=== PATIENT | female | born 1970 | race Caucasian/White ===

== ENCOUNTER 2017-07-10 08:40 | Emergency (ER) | payer OTHER ==
[~2017-07-10] VITALS: Ht 167.6 cm; Wt 65.0 kg
[2017-07-10 08:45] VITALS: BP 130/63; PULSE 52; RESP 18; O2SAT 100
--- NOTE | 2017-07-10 09:06 | ED.REPORT ---
HPI-Abd Pain F 40 and Over Date of Service Jul 10, 2017 ED Provider: Kel Stout MD Pt is a 46 year old female with a history of appendectomy and oophorectomy who presents to the ED complaining of LLQ abdominal pain onset yesterday night. She c/o associated nausea, vomiting, and insomnia secondary to the pain. Pt reports that she vomited prior to arrival. She denies chills, constipation, hematuria, hematemesis, fever, and diarrhea. She reports that she pain radiates to her low back. The pt took ibuprofen without relief. The pt has experienced similar symptoms previously. Pt denies a history of bowel disease and cholecystectomy. Nursing Notes Stated Complaint: POSSIBLE OVARIAN CYSTS/VOMITING Chief Complaint: Female Abdominal Pain Nursing Notes Reviewed: Yes Allergies: Coded Allergies: No Known Allergies (Verified , 07/10/17) General Time Seen by MD: 09:05 Chief Complaint Abdominal pain Hx Obtained From: Patient Arrived By: Walk-in Sudden in Onset?: No Onset Occurred: Yesterday Symptom Duration: Since onset Location: : LLQ Quality: Painful Radiation: : Does not radiate Severity: Current: Moderate Severity: Maximum: Moderate Recent Healthcare: No recent doctor visit, No recent hospitalization Similar Sx Previous: Yes Past Medical History Past Medical History Denies hx of bowel disease, heart disease, and lung disease Denies: Asthma, Diabetes mellitus, Hypertension Past Surgical History Right knee repair x3 Reports: Appendectomy, , Denies: Cholecystectomy Smoking History Unknown if Ever Smoker Social History Alcohol Use: Denies alcohol use Drug Use: Denies drug use Other Social History: Good social support 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 Psychiatric: Reports: Insomnia Physical Exam Vital Signs Vital Signs (First) Date Time Temp Pulse Resp B/P Pulse Ox O2 Delivery O2 Flow Rate FiO2 07/10/17 08:45 36.7 52 18 130/63 100 Room Air Initial VS: Reviewed Head / Eyes: Atraumatic, Normocephalic Neck: Supple, Full range of motion Extremities: Vascular intact, Neuro intact Skin: Warm, Dry, No cyanosis Neurologic: Alert, Oriented, Nonfocal Psychiatric: Mood/affect normal, Behavior normal General/Constitutional: Awake, Alert Respiratory / Chest: Atraumatic, Breath sounds NL, Breath sounds = bilat Cardiovascular: Heart rate NL, Regular rhythm, Heart sounds NL Abdomen: No guarding Midline suprapubic and LLQ tenderness with mild rebound. Back: Atraumatic, Full range of motion Interpretation & Diagnostics PELVIS US: line technician reports small hemorrhagic cyst on the left with a moderate amount of free fluid in the abdomen. Normal color Doppler flow to the left ovary. Right ovary absent. Lab Results Interpretation Result Diagram: 07/10/17 0945 07/10/17 0945 Test 07/10/17 09:45 07/10/17 09:47 White Blood Count 10.2th/mm3 (3.8-10.1) Red Blood Count 3.93mil/mm3 (3.90-5.20) Hemoglobin 12.4g/dL (12.0-15.6) Hematocrit 37.2% (35.0-46.0) Mean Corpuscular Volume 94.7fL (81-100) Mean Corpuscular Hemoglobin 31.6pg (27.0-35.0) Mean Corpuscular Hemoglobin Concent 33.3% (32.0-37.0) Red Cell Distribution Width 11.2% (12.3-15.4) Platelet Count 228bil/L (150-400) Neutrophils (%) (Auto) 82.1% (40-74) Lymphocytes (%) (Auto) 11.6% (14-46) Monocytes (%) (Auto) 5.6% (4-12) Eosinophils (%) (Auto) 0.4% (0-5) Basophils (%) (Auto) 0.2% (0-3) Sodium Level 136mEq/L (134-144) Potassium Level 4.0mEq/L (3.5-5.2) Chloride Level 100mEq/L (97-108) Carbon Dioxide Level 23mmol/L (18-29) Blood Urea Nitrogen 13mg/dL (6-24) Creatinine 0.65mg/dL (0.57-1.00) Estimat Glomerular Filtration Rate 139mL/min (>59) Glucose Level 95mg/dL (60-99) Calcium Level 8.8mg/dL (8.5-10.1) Total Bilirubin 0.4mg/dL (0.0-1.2) Aspartate Amino Transf (AST/SGOT) 27U/L (0-50) Alanine Aminotransferase (ALT/SGPT) 26U/L (0-32) Alkaline Phosphatase 54U/L (25-150) Total Protein 6.6g/dL (6.4-8.4) Albumin 3.8g/dL (3.4-5.0) Urine Color Yellow (YELLOW) Urine Appearance Hazy (CLEAR,HAZY) Urine pH 6.0 (5.0-8.0) Urine Specific [place] 1.030 (1.003-1.035) Urine Protein 30mg/dL (NEG,TRACE) Urine Glucose (UA) Negativemg/dL (NEGATIVE) Urine Ketones 15mg/dL (NEGATIVE) Urine Occult Blood Negative (NEGATIVE) Urine Nitrite Negative (NEGATIVE) Urine Bilirubin Negative (NEGATIVE) Urine Urobilinogen Normalmg/dL (NORMAL) Urine Leukocyte Esterase Negative (NEGATIVE) Urine RBC 0-2/hpf (0-2) Urine WBC 0-5/hpf (0-5) Urine Epithelial Cells Occasional/hpf (NONE-MOD) Urine Crystals None seen (NONE SEEN) Urine Bacteria Moderate/hpf (NONE-FEW) Urine Hyaline Casts None/lpf (NONE) Urine Granular Casts None seen (NONE SEEN) Urine Waxy Casts None seen (NONE SEEN) Urine Red Blood Cell Casts None seen (NONE SEEN) Urine White Blood Cell Casts None seen (NONE SEEN) Urine Mucus Present (None Seen) Urine Trichomonas None seen (NONE SEEN) Urine Yeast Few (NONE SEEN) Urinalysis Comment None Urine Culture Reflexed Indicated Re-Eval/Medical Decision Source of Hx: Old records Re-Evaluation/Progress #1: Time of Eval: 10:59 Re-Evaluation/Progress Note: Pt rechecked. US was being done. All questions addressed. Re-Evaluation/Progress #2: Time of Eval: 11:42 Re-Evaluation/Progress Note: Pt rechecked. She is feeling better and doesn't want any pain medication. Informed pt of plan for discharge. Pt understands and agrees with plan for discharge. F/U instructions and RTER warnings given. All questions addressed. Counseled Regarding: Diagnosis, Lab results, Need for follow-up, When/why to return to ED Discharge & Departure Primary Impression: Left ovarian cyst Disposition: Home Discharge Condition All VS Reviewed: Yes Condition: Stable Patient Instructions: Ovarian Cyst (ED) Additional Instructions: I believe that the symptoms you are experiencing are the result of a hemorrhagic ovarian cyst. Usually this will resolve itself after some time. To help manage the symptoms I recommend ibuprofen 800 mg every 8 hours and acetaminophen (Tylenol) 1000 mg every 6 hours. These are maximum doses. I recommend immediate follow-up for fainting or worsening abdominal pain or high fever. Otherwise follow-up with your primary care provider in the next week or 2 as needed. Referrals: Russ De MD (PCP) Scribe Attestation Portions of this note were transcribed by Mayuri Gao. I, Dr. Stout personally performed the history, physical exam and medical decision-making; I reviewed and confirmed the accuracy of the information in the transcribed note. Signed by: James Alfred, 07/10/17. copies to: Russ De MD, Kirk H MD Jul 10, 2017 09:06 Mayuri Jernigan Jul 10, 2017 09:16
[2017-07-10] MEDS ORDERED: 0.9% Sodium Chloride 1,000 ML IV ONE (09:19)
[2017-07-10] MEDS ORDERED: Ondansetron 2 mg/mL 2 mL Inj IVPUSH PRN (09:20)
[2017-07-10] MEDS ORDERED: HYDROmorphone 0.5 mg/0.5 mL iSecure Syringe IVPUSH PRN (09:20)
[2017-07-10 09:53] LABS: BASOPHILS % (AUTO) 0.2 % (0-3); EOSINOPHILS % (AUTO) 0.4 % (0-5); MONOCYTES % (AUTO) 5.6 % (4-12); Mean Corpuscular Hemoglobin 31.6 pg (27.0-35.0); Mean Corpuscular Volume 94.7 fL (81-100); NEUTROPHILS % (AUTO) 82.1 % (40-74); Platelet Count 228 bil/L (150-400)
[2017-07-10 10:30] LABS: APPEARANCE,URINE HAZY (CLEAR,HAZY); COLOR,URINE YELLOW (YELLOW); OCCULT BLOOD,URINE NEGATIVE (NEGATIVE)
[2017-07-10 10:35] LABS: UROBILINOGEN,URINE NORMAL (NORMAL)
[2017-07-10 10:36] LABS: YEAST,URINE FEW (NONE SEEN)
[2017-07-10 11:25] VITALS: BP 104/68; PULSE 58; RESP 12; O2SAT 100
--- NOTE | 2017-07-10 11:52 | DRSVH ---
PROCEDURE: US PELVIC SONOGRAM + TRANSVAGINAL SONOGRAM INDICATIONS: pelvic pain TECHNIQUE: Real-time scanning was performed of the pelvic organs, with image documentation. Additional endovagi nal scanning was necessary due to incomplete visualization of the adnexal and endometrial structures by transabdominal scanning. COMPARISON: None. FINDINGS: (orthogonal measurements) Uterus size: Status post hysterectomy Endometrium thickness: Size post hysterectomy Right ovary size: Status post right oophorectomy Left ovary size: 4.53 cm, 3.12 cm, 3.60 cm Transabdominal scanning: Limited scanning through the kidneys shows no hydronephrosis. No pathologi c free abdominal or pelvic fluid. Endovaginal scanning: Uterus: Surgically absent Ovaries: There multiple complex appearing cystic lesions involving the left ovary measuring 3.1 x 3.4 x 3.2 cm and 1.7 x 1.3 x 1.5 cm. No internal vascularity is seen. There are internal echoes. There i s normal venous and arterial waveforms with Doppler interrogation. IMPRESSION: Multiple solid versus complex cystic lesions involving the left ovary as measured above statistically representing hemorrhagic cysts although nonspecific. Recommend followup with pelvic ultrasound in 6 weeks to document resolution. No evidence of left ovarian torsion. Status post right oophorectomy and hysterectomy. Dictated by: Ronen Middleton M.D. on 07/10/2017 at 10:47 Approved by: Ronen Middleton M.D. on 07/10/2017 at 10:50
== END 2017-07-10 11:56 | disposition home or self-care (01) ==
LOC: SED 08:40
DX: N83.202 Unspecified ovarian cyst, left side (principal)
CPT/HCPCS: 36415; 76830; 76856; 80053; 81000; 85025; 87086; 96360; 99285; J7030